=== PATIENT | female | born 1990 | race Caucasian/White ===

== ENCOUNTER 2023-04-30 19:15 | Inpatient (IN) | payer OTHER ==
[2023-05-01] MEDS ORDERED: DEXTROSE 5%-LACTATED RINGERS 1,000 ML IV SCH (20:15)
[2023-05-01] MEDS ORDERED: MISOPROSTOL 100 MCG TABLET PV SCH (20:30)
[2023-05-01 21:07] LABS: BASO % 0.5 % (0-2.0); EOS % 0.9 % (0-4.5); HEMATOCRIT 32.3 % (32.4-45.2); HEMOGLOBIN 11.1 GM/dL (10.7-15.3); LYMPH % 23.9 % (8-40); MCH 29.7 pg (25.7-33.7); MCHC 34.2 g/dl (32.0-36.0); MEAN CELL VOLUME 86.8 fl (80-96); MEAN PLT VOLUME 9.4 fl (7.5-11.1); NEUT % 65.7 % (42.8-82.8); PLATELET COUNT 213 10^3/uL (134-434); RBC 3.73 M/mm3 (3.60-5.2); WHITE BLOOD COUNT 7.4 K/mm3 (4.0-10.0)
[2023-05-01 21:13] LABS: INR 0.88 (0.83-1.09); PROTHROMBIN TIME (PATIENT) 10.2 SEC (9.7-13.0)
[2023-05-01 21:16] LABS: ACTIVATED PTT 24.9 SECONDS (25.2-36.5)
[2023-05-01 21:43] LABS: ALBUMIN 2.7 g/dl (3.4-5.0); CALCIUM 8.3 mg/dL (8.5-10.1)
[2023-05-01 21:45] LABS: BLOOD UREA NITROGEN 10.6 mg/dL (7-18)
[2023-05-01 21:47] LABS: CREATININE 0.6 mg/dL (0.55-1.3)
[2023-05-01 21:48] LABS: BILIRUBIN,TOTAL 0.2 mg/dL (0.2-1); TOT PROT 6.4 g/dl (6.4-8.2)
[2023-05-01 22:40] VITALS: BMI 30.7
[2023-05-02] MEDS ORDERED: SODIUM CHLORIDE 500 ML IV STA (03:24)
[2023-05-02] MEDS ORDERED: OXYTOCIN 20 UNITS in 0.9% NS 20 UNIT/1,000 ML INFUS.BAG IV ONE (04:04)
[2023-05-02] MEDS ORDERED: LIDOCAINE HCL 1% PRESERVATIVE FREE - 30ML VIAL ONE (04:19)
[2023-05-02] MEDS ORDERED: IBUPROFEN 600 MG TABLET (FP) PO PRN (05:03)
[2023-05-02] MEDS ORDERED: ACETAMINOPHEN 325 MG TABLET (FP) PO PRN (05:03)
[2023-05-02] MEDS ORDERED: BENZOCAINE 28 GM HEMORRHOIDAL OINTMENT TP PRN (05:03)
[2023-05-02] MEDS ORDERED: WITCH HAZEL 50% (TUCKS) 40 PAD/JAR PAD TP PRN (05:03)
[2023-05-02] MEDS ORDERED: OXYTOCIN 20 UNITS in 0.9% NS 20 UNIT/1,000 ML INFUS.BAG IV SCH (05:15)
[2023-05-02 05:23] LABS: CORD BASE EXCESS -7.8 mmol/L (0-2); CORD HCO3 21.1 mmHg (20-29); CORD PCO2 55.6 mmHg (30-78); CORD pH 7.197 (7.14-7.44)
[2023-05-02 05:24] LABS: CORD BASE EXCESS -7.1 mmol/L (0-2); CORD HCO3 21.1 mmHg (20-29); CORD PCO2 51.7 mmHg (30-78); CORD pH 7.228 (7.14-7.44)
[2023-05-02] MEDS ORDERED: DIPHTH,PERTUSS(ACELL),TET 0.5 ML DISP.SYRIN IM ONE (10:00)
[2023-05-02] MEDS: FERROUS SO4 325 MG TABLET (FP) PO SCH ×3 (10:09→16:36)
[2023-05-02] MEDS: PRENATAL VITAMINS W/ FOLIC ACID TABLET (FP) PO SCH (10:09)
[2023-05-03 09:09] LABS: BASO % 0.3 % (0-2.0); EOS % 0.5 % (0-4.5); HEMATOCRIT 32.9 % (32.4-45.2); HEMOGLOBIN 10.7 GM/dL (10.7-15.3); LYMPH % 15.2 % (8-40); MCH 28.8 pg (25.7-33.7); MCHC 32.5 g/dl (32.0-36.0); MEAN CELL VOLUME 88.7 fl (80-96); MEAN PLT VOLUME 9.6 fl (7.5-11.1); MONO % 5.6 % (3.8-10.2); NEUT % 78.4 % (42.8-82.8); PLATELET COUNT 215 10^3/uL (134-434); RBC 3.71 M/mm3 (3.60-5.2); RDW 16.2 % (11.6-15.6); WHITE BLOOD COUNT 10.4 K/mm3 (4.0-10.0)
[2023-05-03] MEDS: PRENATAL VITAMINS W/ FOLIC ACID TABLET (FP) PO SCH (09:34)
[2023-05-03] MEDS: FERROUS SO4 325 MG TABLET (FP) PO SCH ×2 (09:34→12:03)
[2023-05-03 10:36] VITALS: BP 98/60; PULSE 98; RESP 16; TEMP 98.2
== END 2023-05-03 17:05 | disposition home or self-care (01) | DRG 560 ==
LOC: UNDOADMIN 19:15 → JLDR 19:15 → J3W 05-02 06:05
PROVIDERS: ADMIT Obstetrics & Gynecology Maternal & Fetal Medicine; ATTEND Obstetrics & Gynecology Maternal & Fetal Medicine
PROC: 10E0XZZ Delivery of Products of Conception, External Approach (ICD-10-PCS; principal; 2023-05-02)
PROC: 0HQ9XZZ Repair Perineum Skin, External Approach (ICD-10-PCS; 2023-05-02)
PROC: 10907ZC Drainage of Amniotic Fluid, Therapeutic from Products of Conception, Via Natural or Artificial Opening (ICD-10-PCS; 2023-05-02)
DX: O70.0 First degree perineal laceration during delivery (principal); Z3A.39 39 weeks gestation of pregnancy; Z37.0 Single live birth
CPT/HCPCS: 36415; 36600; 80053; 82803; 85025; 85610; 85730; 86780; 86850; 86900; 86901; 88307-TC; 90715